=== PATIENT | male | born 1965 | race Caucasian/White ===

== ENCOUNTER → 2017-02-06 | Outpatient (CLI) | payer OTHER ==
[~2017-02-06] MED LIST: ALPR0.5T6 PO; CARI350T PO; CARI350T14 PO; CARV12.52 PO; DICL35CA PO; FENTANYL PF 100 MCG/2ML ONE; FLUMAZENIL 0.1 MG/1 ML, 5ML ONE; HYDR12.58 PO; HYDR4TAB PO; MIDAZOLAM 1 MG/ML, 5ML ONE; NALOXONE 1 MG/ML, 2ML ONE; OMEP-110 PO; OXYC15TA PO; OXYC30TA PO; PREG200C PO; ZOLP10TA5 PO
== END | disposition home or self-care (01) ==
LOC: RAD 09:10
PROVIDERS: ATTEND Neurological Surgery
DX: M51.26 Other intervertebral disc displacement, lumbar region (principal); M48.07 Spinal stenosis, lumbosacral region; M47.895 Other spondylosis, thoracolumbar region; M41.86 Other forms of scoliosis, lumbar region; M25.78 Osteophyte, vertebrae; Z98.1 Arthrodesis status
CPT/HCPCS: 72114; 72148; 99156; 99157; J2250; J3010; J2310

== ENCOUNTER 2017-04-17 12:51 | Day surgery (SDC) | payer OTHER ==
[~2017-04-17] VITALS: Ht 190.5 cm; Wt 139.0 kg
[~2017-04-17 12:51] MED LIST changes: -FENTANYL PF 100 MCG/2ML ONE; -FLUMAZENIL 0.1 MG/1 ML, 5ML ONE; -MIDAZOLAM 1 MG/ML, 5ML ONE; -NALOXONE 1 MG/ML, 2ML ONE
[2017-04-17 13:22] VITALS: BP 143/96
[2017-04-17] MEDS ORDERED: SODIUM CHLORIDE 0.9% 1,000 ML IV SCH (13:23)
== END 2017-04-17 16:25 | disposition left against medical advice (07) ==
LOC: OUT 12:51
PROVIDERS: ATTEND Neurological Surgery
DX: M54.5 Low back pain (principal); M48.06 Spinal stenosis, lumbar region; M41.82 Other forms of scoliosis, cervical region; G89.29 Other chronic pain; M41.84 Other forms of scoliosis, thoracic region; I10 Essential (primary) hypertension; I25.2 Old myocardial infarction; F17.200 Nicotine dependence, unspecified, uncomplicated; Z98.890 Other specified postprocedural states; Z72.89 Other problems related to lifestyle
CPT/HCPCS: 62284; 72082; 72132; J7030; Q9965